=== PATIENT | male | born 1985 | race African-American/Black ===

== ENCOUNTER → 2018-03-12 | Outpatient (REF) | payer OTHER ==
[2018-03-13 13:58] LABS: CHLAMYDIA DNA AMPLIFICATION NEGATIVE (NEGATIVE); GC DNA AMPLIFICATION NEGATIVE (NEGATIVE)
== END ==
LOC: M SFHCLERA 20:48
DX: R30.0 Dysuria (principal)
CPT/HCPCS: 87086